=== PATIENT | male | born 1960 | race Caucasian/White ===

== ENCOUNTER 2017-07-10 23:49 | Emergency (ER) | payer MEDICARE ==
[2017-07-11 00:10] LABS: Hematocrit 33.8 % (42.0-52.0); Hemoglobin 12.1 gm/dL (13.5-18.0); Mean Cell Volume 90.4 fl (78-100); Mean Corpuscular Hemoglobin 32.4 pg (27-31); Mean Corpuscular Hgb Conc 35.8 g/dl (32-36); Mean Platelet Volume 9.8 fl (6.0-9.5); Neutrophil # 15.5 K/mm3 (1.3-6.0); Platelet Count 215 K/mm3 (150-450); Red Blood Count 3.74 M/mm3 (4.7-6.0); Red Cell Distribution Width 12.9 % (11.5-14.0); White Blood Count 18.1 K/mm3 (4.0-10.5)
[2017-07-11 00:18] LABS: BUN/Creatinine Ratio 13.9 (9.0-21.6); Blood Urea Nitrogen 56 mg/dL (6-23); Glucose * 243 mg/dL (70-110); Sodium 126 mmol/L (132-142)
[2017-07-11 00:19] LABS: ALT 26 U/L (19-67); AST 49 U/L (0-48); Albumin * 3.6 gm/dl (3.4-5.0); Alkaline Phosphatase * 78 U/L (50-170); Anion Gap 25.9 mmol/L (6.8-13.8); Bilirubin, Total 0.7 mg/dL (0.0-1.1); CK Total * 482 U/L (0-259); Ca. Corrected For Albumin 8.7 mg/dL (8.4-10.2); Calcium * 8.7 mg/dL (7.9-10.9); Carbon Dioxide 17.9 mmol/L (24-32.6); Chloride 88 mmol/L (97-106); Potassium 5.8 mmol/L (3.4-4.6); Total Protein 7.9 gm/dL (6.2-8.2)
[2017-07-11 00:25] LABS: Total Cells Counted 100
[2017-07-11 00:30] LABS: Prothrombin Time (Patient) 17.5 Seconds (9.0-11.0)
[2017-07-11 00:32] LABS: INR 1.74 INR (0.90-1.10)
[2017-07-11 00:43] LABS: Lymphocyte 6 % (20-51); Monocyte 4 % (0-9); Neutrophil 90 % (42-75); Neutrophil # 16.3 K/mm3 (1.3-6.0)
[2017-07-11 00:44] LABS: Hypersegmented Polys 1+; Platelet Estimate Normal (NORMAL); Rouleaux 2+; Target Cells 2+
[2017-07-11] MEDS ORDERED: ONDANSETRON HCL/PF 2 MG/ML VIAL IV ONE (00:51)
[2017-07-11] MEDS ORDERED: HYDROmorphone HCL 1 MG/ML DISP.SYRIN IV ONE (00:52)
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
[2017-07-11] MEDS ORDERED: ONDANSETRON HCL/PF 2 MG/ML VIAL ONE (00:53)
[2017-07-11] MEDS ORDERED: HYDROmorphone HCL 1 MG/ML DISP.SYRIN ONE (00:53)
[2017-07-11] MEDS ORDERED: SODIUM POLYSTYRENE SULFON/SORB 15 G/60 ML BTL PO ONE (01:08)
[2017-07-11] MEDS ORDERED: NORMAL SALINE 1,000 ML IV ONE (01:08)
[2017-07-11] MEDS ORDERED: SODIUM POLYSTYRENE SULFON/SORB 15 G/60 ML BTL ONE (01:21)
[2017-07-11] MEDS ORDERED: NORMAL SALINE 500 ML IV ONE (01:22)
[2017-07-11 01:28] LABS: Urine Bilirubin 1 mg/dl (NEGATIVE); Urine Blood 50 /ul (NEGATIVE); Urine Ketone 5 mg/dL (NEGATIVE); Urine Nitrite Negative (NEGATIVE); Urine Protein 15 mg/dL (NEGATIVE); Urine Urobilinogen Normal (NORMAL)
[2017-07-11 01:36] LABS: Urine Appearance Slightly Cloudy; Urine Bacteria None Seen; Urine Color Dark Yellow; Urine WBC 0-5 /hpf (0-5)
[2017-07-11 01:37] LABS: Urine Amorphous Sediment Moderate - 2+ (NONE-FEW); Urine Mucus Moderate - 2+
[2017-07-11] MEDS ORDERED: VANCOMYCIN HCL 1 GM in DEXTROSE 5 % IN WATER 250 ML IV ONE ×2 (01:38)
[2017-07-11] MEDS ORDERED: PIPERACILLIN SODIUM/TAZOBACTAM 3.375 GM in DEXTROSE 5 % IN WATER 100 ML IV ONE ×2 (01:38)
[2017-07-11 01:40] LABS: Cocaine Ur Negative (NEGATIVE); Urine Barbiturate Negative (NEGATIVE); Urine Benzodiazepines Negative (NEGATIVE); Urine Opiates Negative (NEGATIVE); Urine PCP Negative (NEGATIVE); Urine THC Negative (NEGATIVE)
[2017-07-11 01:49] VITALS: BP 111/75
== END 2017-07-11 02:02 | disposition short-term general hospital (02) ==
LOC: ER 23:49
PROC: 2W3AXYZ Immobilization of Right Upper Arm using Other Device (ICD-10-PCS; principal; 2017-07-10)
DX: S42.201A Unspecified fracture of upper end of right humerus, initial encounter for closed fracture (principal); A41.9 Sepsis, unspecified organism; K76.9 Liver disease, unspecified; F17.200 Nicotine dependence, unspecified, uncomplicated; W01.0XXA Fall on same level from slipping, tripping and stumbling without subsequent striking against object, initial encounter; Y92.009 Unspecified place in unspecified non-institutional (private) residence as the place of occurrence of the external cause